=== PATIENT | female | born 1980 ===

== ENCOUNTER 2020-01-19 06:43 | Day surgery (SDC) | payer BC ==
[~2020-01-19 06:43] MED LIST: Lactated Ringers 1,000 ML IV SCH; Lidocaine 1%/Sod Bicarbonate in NS 8.4% 1 ML Syringe IDERM PRN; Sodium Chloride 0.9% 10 ML Syringe FLUSH PRN
[2020-01-19] MEDS ORDERED: Lidocaine 1% with EPINEPHrine 1:100,000 20 ML MDV ONE (07:12)
[2020-01-19] MEDS ORDERED: Sodium Chloride 0.9% 50 ML SDV ONE (07:12)
[2020-01-19] MEDS ORDERED: Ondansetron 4 MG/2 ML SDV ONE (07:14)
[2020-01-19] MEDS ORDERED: Lidocaine 1% 4 ML ONE (07:14)
[2020-01-19] MEDS ORDERED: Lactated Ringers 1,000 ML ONE (07:14)
[2020-01-19] MEDS ORDERED: ceFAZolin 1 GM Vial ONE (07:14)
[2020-01-19] MEDS ORDERED: Rocuronium 50 MG/5 ML Vial ONE (07:14)
[2020-01-19] MEDS ORDERED: Propofol 200 MG/20 ML SDV ONE ×2 (07:15→08:05)
[2020-01-19] MEDS ORDERED: Midazolam 1 MG/ML 2 ML SDV ONE (07:15)
[2020-01-19] MEDS ORDERED: fentaNYL 250 MCG/5 ML SDV ONE (07:15)
[2020-01-19] MEDS ORDERED: Ketamine 500 mg/10 ML MDV ONE (08:05)
[2020-01-19] MEDS ORDERED: Dexamethasone 4 MG/ML 5 ML MDV ONE (08:10)
[2020-01-19] MEDS ORDERED: Ketorolac 15 MG/ML SDV ONE (08:10)
[2020-01-19] MEDS ORDERED: HYDROmorphone 0.5 MG/0.5 ML Syringe IVPUSH PRN (08:30)
[2020-01-19] MEDS ORDERED: Ondansetron 4 MG/2 ML SDV IVPUSH PRN (08:30)
--- NOTE | 2020-01-19 08:33 | PCM.PREANE ---
Preanesthetic Assessment - Procedure Proposed Procedure: LAVH with Posterior Vaginal Repair/ Perineoplasty - Anesthesia/Transfusion/Family Hx Anesthesia History: Prior Anesthesia Without Reaction Family History of Anesthesia Reaction: No - Review of Systems General: No Symptoms Pulmonary: No Symptoms Cardiovascular: No Symptoms Gastrointestinal: No Symptoms Neurological: Other (Back pain seeing chiropractor for care. ) Other: Reports: Depression, Anxiety - Physical Assessment NPO Status Date: 01/18/20 NPO Status Time: 20:30 Vital Signs: Last Vital Signs Temp 36.6 C 01/19/20 06:50 Pulse 55 L 01/19/20 06:50 Resp 16 01/19/20 06:50 BP 124/74 01/19/20 06:50 Pulse Ox 98 01/19/20 06:50 Height: 1.7 m Weight: 73.028 kg ASA Class: 2 Mental Status: Alert & Oriented x3 Airway Class: Mallampati = 1 Dentition: Reports: Bridge (Upper) Thyro-Mental Finger Breadths: 3 Mouth Opening Finger Breadths: 3 ROM/Head Extension: Full Lungs: Clear to Auscultation, Normal Respiratory Effort Cardiovascular: Regular Rhythm, Bradycardia (40-55 noted preoperatively) - Lab Values: Laboratory Last Values WBC 4.55 K/mm3 (3.98-10.04) 01/19/20 07:05 RBC 4.32 M/mm3 (3.98-5.22) 01/19/20 07:05 Hgb 13.3 gm/dl (11.2-15.7) 01/19/20 07:05 Hct 41.1 % (34.1-44.9) 01/19/20 07:05 MCV 95.1 fl (79.4-94.8) H 01/19/20 07:05 MCH 30.8 pg (25.6-32.2) 01/19/20 07:05 MCHC 32.4 g/dl (32.2-35.5) 01/19/20 07:05 RDW Std Deviation 43.4 fL (36.4-46.3) 01/19/20 07:05 Plt Count 158 K/mm3 (182-369) L 01/19/20 07:05 MPV 10.6 fl (9.4-12.3) 01/19/20 07:05 Neut % (Auto) 45.1 % (34.0-71.1) 01/19/20 07:05 Lymph % (Auto) 36.5 % (19.3-51.7) 01/19/20 07:05 [place] % (Auto) 15.4 % (4.7-12.5) H 01/19/20 07:05 Eos % (Auto) 2.4 (0.7-5.8) 01/19/20 07:05 Baso % (Auto) 0.4 % (0.1-1.2) 01/19/20 07:05 Neut # (Auto) 2.05 K/mm3 (1.56-6.13) 01/19/20 07:05 Lymph # (Auto) 1.66 K/mm3 (1.18-3.74) 01/19/20 07:05 [place] # (Auto) 0.70 K/mm3 (0.24-0.36) H 01/19/20 07:05 Eos # (Auto) 0.11 K/mm3 (0.04-0.36) 01/19/20 07:05 Baso # (Auto) 0.02 K/mm3 (0.01-0.08) 01/19/20 07:05 Sodium 141 mEq/L (136-145) 01/19/20 07:05 Potassium 4.0 mEq/L (3.5-5.1) 01/19/20 07:05 Chloride 106 mEq/L (98-107) 01/19/20 07:05 Carbon Dioxide 25 mEq/L (21-32) 01/19/20 07:05 Anion Gap 14.0 (5-15) 01/19/20 07:05 BUN 17 mg/dL (7-18) 01/19/20 07:05 Creatinine 0.7 mg/dL (0.55-1.02) 01/19/20 07:05 Est Cr Clr Drug Dosing 104.93 mL/min 01/19/20 07:05 Estimated GFR (MDRD) > 60 mL/min (>60) 01/19/20 07:05 BUN/Creatinine Ratio 24.3 (14-18) H 01/19/20 07:05 Glucose 94 mg/dL (74-106) 01/19/20 07:05 Calcium 9.0 mg/dL (8.5-10.1) 01/19/20 07:05 Total Bilirubin 0.3 mg/dL (0.2-1.0) 01/19/20 07:05 AST 19 U/L (15-37) 01/19/20 07:05 ALT 22 U/L (14-59) 01/19/20 07:05 Alkaline Phosphatase 60 U/L (46-116) 01/19/20 07:05 Total Protein 6.9 g/dl (6.4-8.2) 01/19/20 07:05 Albumin 3.6 g/dl (3.4-5.0) 01/19/20 07:05 Globulin 3.3 gm/dL 01/19/20 07:05 Albumin/Globulin Ratio 1.1 (1-2) 01/19/20 07:05 Urine HCG, Qual Negative (NEGATIVE) 01/19/20 06:45 Blood Type O POSITIVE 01/19/20 07:05 Gel Antibody Screen Negative 01/19/20 07:05 - Allergies Allergies/Adverse Reactions: Allergies Allergy/AdvReac Type Severity Reaction Status Date / Time No Known Allergies Allergy Verified 01/18/20 14:27 - Anesthesia Plan Pre-Op Medication Ordered: Anxiolytic - Acknowledgements Anesthesia Type Planned: General Anesthesia Pt an Appropriate Candidate for the Planned Anesthesia: Yes Alternatives and Risks of Anesthesia Discussed w Pt/Guardian: Yes Pt/Guardian Understands and Agrees with Anesthesia Plan: Yes PreAnesthesia Questionnaire HEENT History: Reports: Impaired Vision Cardiovascular History: Reports: Other (See Below) Other Cardiovascular History: chest pain Respiratory History: Reports: None Gastrointestinal History: Reports: Other (See Below) Other Gastrointestinal History: dysphagia Genitourinary History: Reports: Other (See Below) Other Genitourinary History: breast nodule, cystitis, hematuria, left flank pain, breast augmentation, cervical conization with cold knife [employer] History: Reports: Other (See Below) Other OB/BYN History: menorrhagia, cystocele, rectocele, amenorrhea, irregular menses, SAB, Musculoskeletal History: Reports: Back Pain, Chronic Neurological History: Reports: None Psychiatric History: Reports: Anxiety Endocrine/Metabolic History: Reports: None Hematologic History: Reports: None Immunologic History: Reports: None Oncologic (Cancer) History: Reports: None Dermatologic History: Reports: Other (See Below) Other Dermatologic History: unwanted hair, yeast dermatitis - Past Surgical History Head Surgeries/Procedures: Reports: None HEENT Surgical History: Reports: Oral Surgery, Tonsillectomy Cardiovascular Surgical History: Reports: None Respiratory Surgical History: Reports: None GI Surgical History: Reports: None Female Surgical History: Reports: Tubal Ligation Male Surgical History: Reports: None Endocrine Surgical History: Reports: None Neurological Surgical History: Reports: None Musculoskeletal Surgical History: Reports: None Oncologic Surgical History: Reports: None Dermatological Surgical History: Reports: None - SUBSTANCE USE Smoking Status *Q: Former Smoker Recreational Drug Use History: No - HOME MEDS Home Medications: Home Meds Docusate Sodium [Stool Softener] 100 mg PO DAILY 01/18/20 [History] Lactobacillus Combination No.4 [Probiotic] 1 cap PO DAILY 01/18/20 [History] Magnesium Oxide [Magnesium] 500 mg PO DAILY 01/18/20 [History] - CURRENT (IN HOUSE) MEDS Current Meds: Current Medications Lactated Ringer's (Ringers, Lactated) 1,000 mls @ 125 mls/hr IV ASDIRECTED ELIOT Stop: 01/19/20 23:00 Last Admin: 01/19/20 07:05 Dose: 125 mls/hr Documented by: Lidocaine/Sodium Bicarbonate (Buffered Lidocaine 1% In Ns 8.4%) 0.25 ml IDERM ONETIME PRN PRN Reason: Prior to IV Start Stop: 01/19/20 18:00 Last Admin: 01/19/20 07:05 Dose: 0.25 ml Documented by: Sodium Chloride (Saline Flush) 10 ml FLUSH ASDIRECTED PRN PRN Reason: Keep Vein Open Stop: 01/19/20 18:00 Discontinued Medications Cefazolin Sodium (Ancef) Confirm Administered Dose 2 gm .ROUTE .STK-MED ONE Stop: 01/19/20 07:15 Dexamethasone (Dexamethasone) Confirm Administered Dose 20 mg .ROUTE .STK-MED ONE Stop: 01/19/20 08:11 Fentanyl (Sublimaze) Confirm Administered Dose 250 mcg .ROUTE .STK-MED ONE Stop: 01/19/20 07:16 Lidocaine HCl (Xylocaine-Mpf 1%) Confirm Administered Dose 4 mls @ as directed .ROUTE .STK-MED ONE Stop: 01/19/20 07:15 Lactated Ringer's (Ringers, Lactated) Confirm Administered Dose 1,000 mls @ as directed .ROUTE .STK-MED ONE Stop: 01/19/20 07:15 Ketamine HCl (Ketalar) Confirm Administered Dose 500 mg .ROUTE .STK-MED ONE Stop: 01/19/20 08:06 Ketorolac Tromethamine (Toradol) Confirm Administered Dose 15 mg .ROUTE .STK-MED ONE Stop: 01/19/20 08:11 Lidocaine/Epinephrine (Xylocaine 1% With Epinephrine 1:100,000) Confirm Administered Dose 20 ml .ROUTE .STK-MED ONE Stop: 01/19/20 07:13 Midazolam HCl (Versed 1 Mg/Ml) Confirm Administered Dose 2 mg .ROUTE .STK-MED ONE Stop: 01/19/20 07:16 Ondansetron HCl (Zofran) Confirm Administered Dose 4 mg .ROUTE .ST-MED ONE Stop: 01/19/20 07:15 Propofol (Diprivan 20 Ml) Confirm Administered Dose 400 mg .ROUTE .STK-MED ONE Stop: 01/19/20 07:16 Propofol (Diprivan 20 Ml) Confirm Administered Dose 200 mg .ROUTE .STK-MED ONE Stop: 01/19/20 08:06 Rocuronium Grimes (Zemuron) Confirm Administered Dose 50 mg .ROUTE .STK-MED ONE Stop: 01/19/20 07:15 Sodium Chloride (Normal Saline) Confirm Administered Dose 50 ml .ROUTE .STK-MED ONE Stop: 01/19/20 07:13
[2020-01-19] MEDS ORDERED: ePHEDrine Sulfate/0.9% NaCl/Pf 25 MG/5 ML SYRINGE IV ONE (09:06)
--- NOTE | 2020-01-19 09:29 | PCM.POSTAN ---
POST ANESTHESIA ASSESSMENT - MENTAL STATUS Mental Status: Alert, Oriented - VITAL SIGNS Vital Signs: Last Vital Signs Temp 36.6 C 01/19/20 06:50 Pulse 55 L 01/19/20 06:50 Resp 16 01/19/20 06:50 BP 124/74 01/19/20 06:50 Pulse Ox 98 01/19/20 06:50 0924 129/68 86 13 98.7F 100% - RESPIRATORY Respiratory Status: Respiratory Rate WNL, Airway Patent, O2 Saturation Stable, Supplemental Oxygen - CARDIOVASCULAR CV Status: Pulse Rate WNL, Blood Pressure Stable - GASTROINTESTINAL GI Status: No Symptoms - PAIN Pain Score: 0 - POST OP HYDRATION Hydration Status: Adequate & Stable
[2020-01-19] MEDS: fentaNYL 100 MCG/2 ML SDV IVPUSH PRN ×2 (09:33→09:50)
--- NOTE | 2020-01-19 09:35 | PCM.OPNOTE ---
- General Post-Op/Procedure Note Date of Surgery/Procedure: 01/19/20 Operative Procedure(s): Total vaginal hysterectomy, posterior vaginal repair with perineoplasty. Findings: Grade 3 rectocele, grade 2 cystocele, grade 1 uterine descensus. Fallopian tubes bilaterally were gently absent. Lateral ovaries were within normal limits and functional in appearance. Pre Op Diagnosis: 1. Grade 3 rectocele. 2. Grade 1-2 cystocele. 3. Grade 1 uterine descensus. 4. Menorrhagia Post-Op Diagnosis: Same Anesthesia Technique: General ET Tube Other Anesthesia Type: Lidocaine quarter percent with [id number] cc total local Primary Surgeon: Varghese Montilla Secondary Surgeon: Alexandr Serna Anesthesia Provider: Jacqui Johnson Contract Project Manager: Mario Brown Reason Contract Project Manager Was Necessary: retraction, assistance, patient safety, quality of care. Pathology: Uterus with cervix EBL in mLs: 160 Complications: None Condition: Good Free Text/Narrative:: Duration: 61 minutes Procedure: The patient is taken to the operating room and placed in the supine position on operating table. She received 2 g of Ancef preoperatively for infection prophylaxis and had sequential compression stockings were placed for DVT prophylaxis. Patient is administered general endotracheal anesthesia. After adequate anesthesia the patient was placed in a dorsolithotomy position. She is prepped and draped in the usual fashion She had emptied her bladder prior to admission to the operating room. The weighted speculum is placed in the vagina and cervix was grasped with a double-tooth tenaculum. Is infiltrated with approximately 20 cc of lidocaine quarter percent with epinephrine. A full circumferential incision was then made through the epithelium of the cervix and the epithelium is pushed well back off the cervix. The posterior cul-de-sac was entered and a long weighted speculum was placed in this area. The left uterosacral ligament was then grasped with a Enseal vessel closure device and development of this pedicle was undertaken. The same was done on patient's right side. The cardinal ligament and uterine vasculature were then developed in a similar fashion using the Enseal system. The entry cul-de-sac was then entered. The broad ligament was taken down with the Enseal system and the upper broad ligament and corneal area of the uterus was then crossclamped, pedicles were developed and his uterus was completely removed. A modified Moschcowitz stitch was placed to bring the lateral support tissues including the uterosacral ligaments to the midline and incorporate them in the vaginal cuff for support purposes. The vaginal cuff was run posteriorly with an 0 Monocryl suture and then the vaginal cuff was closed completely with a running locked 3-0 Monocryl suture. The posterior vaginal repair was then performed. The most cephalad portion of the rectocele was identified and grasped midline with this short Allis clamp. At the border of the vaginal epithelium and the vulvar epithelium at approximately the 4:00 and 8 o'clock position the epithelium was grasped with Allis clamp edition such that when approximated midline it would reduce the caliber of the vagina to approximately 2 fingerbreadth. Lidocaine quarter percent with epinephrine was then used to infiltrate the sub-epithelial layer. A melissa-shaped piece of epithelium was removed from the introitus posteriorly. The epithelium was undermined cephalad to develop a plane in performance of the posterior repair. The epithelium was dissected off the underlying support tissue. Approximately 4 trapezoidal shaped sutures placements of 0 Monocryl were then used to reapproximate the lateral support tissues midline and reduce the rectocele. The excess epithelium was excised per routine. The epithelium is reapproximated midline using 3-0 Monocryl suture in a running fashion. 2 short running sutures were used to reduce any chance of shortening the vagina. A full finger length depth and 2 fingerbreadth caliber was maintained for sexual function reasons. Approximately 3 more stitches were placed into the perineal area as perineoplasty these were V shaped in fashion and 0 Monocryl was used. The epithelium was then closed in a routine fashion using 3-0 Monocryl. At this point the patient was returned to the supine position, awakened from general endotracheal anesthesia and discharged from the operating room in good condition.
[2020-01-19] MEDS ORDERED: Acetaminophen/oxyCODONE 325-5 MG Tab PO PRN (12:22)
--- NOTE | 2020-01-19 13:25 | PCM48HPAN ---
Post Anesthesia Note - EVALUATION WITHIN 48HRS OF ANESTHETIC Vital Signs in Normal Range: Yes Patient Participated in Evaluation: Yes Respiratory Function Stable: Yes Airway Patent: Yes Cardiovascular Function Stable: Yes Hydration Status Stable: Yes Pain Control Satisfactory: Yes Nausea and Vomiting Control Satisfactory: Yes Mental Status Recovered: Yes Vital Signs: Last Vital Signs Temp 36.6 C 01/19/20 10:04 Pulse 49 L 01/19/20 13:00 Resp 12 01/19/20 13:00 BP 116/53 L 01/19/20 13:00 Pulse Ox 95 01/19/20 13:00
== END 2020-01-19 14:17 | disposition home or self-care (01) ==
LOC: JD.SDS 06:43
PROVIDERS: ATTEND Obstetrics & Gynecology
DX: N80.0 Endometriosis of uterus (principal); N88.8 Other specified noninflammatory disorders of cervix uteri; N72 Inflammatory disease of cervix uteri; N81.2 Incomplete uterovaginal prolapse; F41.9 Anxiety disorder, unspecified; Z90.79 Acquired absence of other genital organ(s); Z87.891 Personal history of nicotine dependence
CPT/HCPCS: 36415; 57250; 58260; 80053; 81025; 85025; 86850; 86900; 86901; A9270; J0171; J0690; J1100; J1170; J1885; J2001; J2250; J2704; J3010; J7120; 00944; J2405